=== PATIENT | female | born 1945 | race Caucasian/White ===

== ENCOUNTER 2023-06-21 14:29 | Emergency (ER) | payer MEDICARE, OTHER, SELFPAY ==
[2023-06-21 14:30] VITALS: BMI 22.9
[2023-06-21 14:43] VITALS: BP 163/84
[2023-06-21 15:15] LABS: % Basophils 0.3 % (0-2); % Eosinophils 0.6 % (0-6); % Immature Granulocytes 0.5 % (0-0.5); % Lymphocytes 12.2 % (20.5-51.1); % Monocytes 15.2 % (1.7-9.3); % Neutrophils 71.2 % (42.2-75.2); Absolute Eosinophils 0.1 10^3/uL (0-0.7); Absolute Lymphocytes 1.1 10^3/uL (1.2-3.4); Absolute Monocytes 1.3 10^3/uL (0.1-0.6); Absolute Neutrophils 6.2 10^3/uL (1.4-6.5); Hematocrit 41.7 % (37.0-47.0); Hemoglobin 14.4 g/dL (12.0-16.0); Mean Corp Hgb Conc. 34.5 g/dL (33.0-37.0); Mean Corpuscular Hgb 31.3 pg (27.0-31.0); Mean Corpuscular Volume 90.7 fL (81.0-99.0); Mean Platelet Volume 10.6 fL (7.4-10.4); Nucleated Red Blood Cells % 0 %; Platelet Count 245 10^3/uL (130-400); Red Cell Dist. Width 13.6 % (11.5-14.5); White Blood Cell Count 8.7 10^3/uL (4.8-10.8)
[2023-06-21 15:33] LABS: ALT (SGPT) 20 U/L (0-35); AST (SGOT) 29 U/L (14-36); Albumin 3.8 g/dl (3.5-5.0); Alkaline Phosphatase 99 U/L (38-126); Blood Urea Nitrogen 28 mg/dl (7-17); Calcium 9.8 mg/dl (8.4-10.2); Carbon Dioxide 24 mmol/L (22-30); Chloride 104 mmol/L (98-107); Estimated Creatinine Clearance 40 ml/min; Glucose 112 mg/dl (70-99); Potassium 4.2 mmol/L (3.5-5.1); Sodium 136 mmol/L (135-145); Total Bilirubin 0.6 mg/dl (0.2-1.3); Total Protein 6.9 g/dl (6.3-8.2); eGFR > 60.00
[2023-06-21 15:34] LABS: Lipase 119 U/L (23-300)
[2023-06-21 16:00] VITALS: BP 155/80
--- NOTE | 2023-06-21 16:21 | ED.GENMED ---
History of Present Illness
General
Chief Complaint: Abdominal Pain
Time Seen by Provider: 06/21/23 14:56
Travel History
Have you had any contact with someone who has COVID-19?: Yes
Comment: see above
Do you have any symptoms of coronavirus? Fever > 100 degrees, chills, cough, shortness of breath, sore throat, loss of taste or smell, muscle aches, or headache?: Yes
Symptoms:: see above.
History of Present Illness
History of Present Illness:
77-year-old female with history of hypertension presents to the emergency department for evaluation of bilateral lower abdominal pain developing earlier today. States it began approximately 2 hours after taking Paxlovid, was diagnosed with COVID
after developing URI symptoms over the weekend. She had a bowel movement after the onset of pain and symptoms have resolved. At the current time she has no complaints other than that was attributed to her COVID including nasal congestion, malaise,
and dry cough. Denies any chest pain or trouble breathing.
Past History
Past History
ED Past Medical History: GERD, HTN and Hypercholesterolemia
ED Past Surgical History: Gynecological (hysterectomy)
Patient has exhibited threatening behavior?: No
Social History
Tobacco: Non-smoker
Alcohol: Occasional
Drug: None
Personal:
Living: with family
Employment: Not employed
Family History
Family History: CAD, Cancer and Other (hepatitis B)
Review of Systems
Review of Systems
Allergies reviewed?: Yes
All Other Systems: ROS reviewed and negative except as documented in HPI and ROS
Phy Exam
Physical Exam
Physical Exam:
GEN: Well appearing, NAD, WDWN
HEENT: Oral mucosa moist, no scleral icterus
Cardiac: Regular rate
Lung: No respiratory distress, no tachypnea
Abdomen: Soft, nontender, no rigidity
MSK: No gross deformity or injuries
Skin: Good color, no pallor or jaundice, no rashes
Neuro: AO x3, moves all extremities freely
Psych: Calm, cooperative
Course
Orders/Labs/Results
Orders:
Orders
06/21/23 14:45
Complete Blood Count/With Diff Urgent
Comprehensive Metabolic Panel Urgent
Lipase Urgent
Abnormal Lab Results
06/21/23
14:45
MCH 31.3 H pg
(27.0-31.0)
MPV 10.6 H fL
(7.4-10.4)
Absolute Lymphs (auto) 1.1 L 10^3/uL
(1.2-3.4)
Absolute Monos (auto) 1.3 H 10^3/uL
(0.1-0.6)
Lymphocytes % 12.2 L %
(20.5-51.1)
Monocytes % 15.2 H %
(1.7-9.3)
BUN 28 H mg/dl
(7-17)
Glucose 112 H mg/dl
(70-99)
06/21/23 14:45
06/21/23 14:45
Vital Signs
Initial and Last Documented VS:
Initial Vital Signs
Pulse Ox
99
06/21/23 14:30
Last Documented Vital Signs
Temp Pulse Resp BP Pulse Ox
98.6 F 84 18 155/80 99
06/21/23 14:43 06/21/23 16:00 06/21/23 16:00 06/21/23 16:00 06/21/23 16:00
MDM/Problems Addressed
MDM/Problems Addressed:
Patient's abdominal exam is benign currently. Her labs are reassuring. No indication for imaging in regards to COVID given that she is not hypoxic and has no shortness of breath complaints. Hard to truly attribute this to Paxlovid given that the
symptoms are now resolved, would encourage her to continue this however with any recurrent pain may need to discontinue Paxlovid particular given that she has not excessively high risk for worsening disease
*Critical Care Note
Total Time (30-74mins, 75-104mins- exclusive of procedures): Not Applicable
ED Attending Note
-
Portions of this chart may have been created with voice recognition software.� Occasional wrong word or��sound alike� substitutions may have occurred due to the inherent limitations of voice recognition software.
Discharge Plan
Departure
Patient Disposition: Home (Routine Discharge)
Date of Disposition: 06/21/23
Time of Disposition: 16:21
Patient with high blood pressure during this ER visit?: No
Discharge Problem:
Abdominal pain, lower, COVID-19
Instructions: COVID-19 (DC)
Interventions
Interventions:
*Risk Screen - Suicide Last Done: 06/21/23 14:30
*General Assessment Last Done: 06/21/23 14:30
*Neglect/Abuse Screening Last Done: 06/21/23 14:30
ED- Fall Risk Assessment Last Done: 06/21/23 14:30
*ED COVID-19 Vaccine History Last Done: 06/21/23 14:30
*Nursing Disposition Last Done: 06/21/23 17:16
FE-Aimqey-Acuuwobpmx Assessment Last Done: 06/21/23 14:30
Discharge Date and Time
Discharge Date/Time: 06/21/23 17:17
== END 2023-06-21 17:17 | disposition home or self-care (01) ==
LOC: EMR 14:29
PROVIDERS: EMERGENCY PHYSICIAN Emergency Medicine; FAMILY PHYSICIAN Family Medicine
DX: U07.1 COVID-19 (principal); R10.30 Lower abdominal pain, unspecified
CPT/HCPCS: 99283; 80053; 83690; 85025

== ENCOUNTER → 2023-07-03 08:24 | Outpatient (REF) | payer MEDICARE, OTHER, SELFPAY | LOC: RCS 08:24 | PROVIDERS: ATTENDING PHYSICIAN Internal Medicine Cardiovascular Disease; FAMILY PHYSICIAN Family Medicine | DX: I11.9 Hypertensive heart disease without heart failure (principal) | CPT/HCPCS: 93306 ==

== ENCOUNTER → 2023-07-16 10:46 | Outpatient (REF) | payer MEDICARE, OTHER, SELFPAY | LOC: WDC 10:46 | PROVIDERS: ATTENDING PHYSICIAN Family Medicine | DX: Z12.31 Encounter for screening mammogram for malignant neoplasm of breast (principal) | CPT/HCPCS: 77063; 77067 ==

== ENCOUNTER → 2023-09-08 10:03 | Outpatient (REF) | payer MEDICARE, OTHER, SELFPAY ==
[2023-09-08 11:21] LABS: Urine Albumin Negative (Neg - Trace); Urine Bilirubin Negative (Negative); Urine Character Clear (Clear); Urine Color Yellow; Urine Glucose Negative (Negative); Urine Ketone Negative (Negative); Urine Leukocyte 2+ (Negative); Urine Nitrite Negative (Negative); Urine Occult Blood Negative (Negative); Urine Urobilinogen Negative (Neg - 1+)
[2023-09-08 11:28] LABS: % Basophils 0.5 % (0-2); % Eosinophils 2.2 % (0-6); % Immature Granulocytes 0.4 % (0-0.5); % Lymphocytes 28.1 % (20.5-51.1); % Monocytes 7.9 % (1.7-9.3); % Neutrophils 60.9 % (42.2-75.2); Absolute Eosinophils 0.2 10^3/uL (0-0.7); Absolute Lymphocytes 2.3 10^3/uL (1.2-3.4); Absolute Monocytes 0.7 10^3/uL (0.1-0.6); Absolute Neutrophils 5.1 10^3/uL (1.4-6.5); Hematocrit 41.2 % (37.0-47.0); Mean Corpuscular Hgb 31.8 pg (27.0-31.0); Mean Corpuscular Volume 93.6 fL (81.0-99.0); Mean Platelet Volume 11.2 fL (7.4-10.4); Nucleated Red Blood Cells % 0 %; Platelet Count 185 10^3/uL (130-400); Red Cell Dist. Width 13.8 % (11.5-14.5); White Blood Cell Count 8.3 10^3/uL (4.8-10.8)
[2023-09-08 11:34] LABS: Urine Bacteria Few (Negative); Urine Red Blood Cell 0-2 /HPF (0-2)
[2023-09-08 11:52] LABS: ALT (SGPT) 17 U/L (0-35); AST (SGOT) 23 U/L (14-36); Albumin 3.9 g/dl (3.5-5.0); Alkaline Phosphatase 88 U/L (38-126); Blood Urea Nitrogen 22 mg/dl (7-17); Calcium 9.3 mg/dl (8.4-10.2); Carbon Dioxide 28 mmol/L (22-30); Chloride 105 mmol/L (98-107); Glucose 87 mg/dl (70-99); HDL Cholesterol 105 mg/dl; LDL Cholesterol, Calculated 103 mg/dl; Potassium 4.5 mmol/L (3.5-5.1); Sodium 139 mmol/L (135-145); Total Bilirubin 0.7 mg/dl (0.2-1.3); Total Cholesterol 227 mg/dl (50-199); Total Protein 6.7 g/dl (6.3-8.2); Triglyceride 99 mg/dl (10-149); Very Low Density Lipoprotein 19 mg/dl (0-30); eGFR > 60.00
[2023-09-08 12:05] LABS: Total Thyroxine 6.74 ug/dl (5.5-11.0)
[2023-09-08 12:25] LABS: TSH 3.46 uIU/ml (0.47-4.68)
== END ==
LOC: REG 10:03
PROVIDERS: ATTENDING PHYSICIAN Family Medicine
DX: I25.9 Chronic ischemic heart disease, unspecified (principal); I10 Essential (primary) hypertension; E11.9 Type 2 diabetes mellitus without complications; E78.2 Mixed hyperlipidemia; E03.9 Hypothyroidism, unspecified; R39.15 Urgency of urination
CPT/HCPCS: 36415; 80053; 80061; 81003; 81015; 84436; 84443; 85025

== ENCOUNTER → 2023-11-15 10:32 | Outpatient (REF) | payer MEDICARE, OTHER, SELFPAY ==
[2023-11-15 12:10] LABS: ALT (SGPT) 16 U/L (0-35); AST (SGOT) 25 U/L (14-36); Albumin 4.3 g/dl (3.5-5.0); Alkaline Phosphatase 84 U/L (38-126); Blood Urea Nitrogen 25 mg/dl (7-17); Calcium 9.9 mg/dl (8.4-10.2); Carbon Dioxide 28 mmol/L (22-30); Chloride 107 mmol/L (98-107); Glucose 83 mg/dl (70-99); Magnesium 2.1 mg/dl (1.6-2.3); Phosphorus 3.6 mg/dl (2.5-4.5); Potassium 4.6 mmol/L (3.5-5.1); Sodium 141 mmol/L (135-145); Total Bilirubin 0.6 mg/dl (0.2-1.3); Total Protein 6.8 g/dl (6.3-8.2); eGFR 57.66
[2023-11-15 12:28] LABS: Vitamin D, 25-OH*** 46.4 ng/mL (30-80)
[2023-11-15 12:41] LABS: TSH 2.74 uIU/ml (0.47-4.68)
[2023-11-15 13:38] LABS: Folate > 20.0 ng/ml (2.76-20); Vitamin B12 588 pg/ml (239-931)
[2023-11-16 11:49] LABS: Syphilis/T. pallidum Ab Reflex Negative (Negative)
[2023-11-17 10:22] LABS: Intact PTH 45.8 pg/ml (13.6-85.8)
== END ==
LOC: REG 10:32
PROVIDERS: ATTENDING PHYSICIAN Internal Medicine Endocrinology, Diabetes & Metabolism; FAMILY PHYSICIAN Family Medicine; REFERRING PHYSICIAN Psychiatry & Neurology Neurology
DX: I10 Essential (primary) hypertension (principal); R42 Dizziness and giddiness; R41.3 Other amnesia; M81.0 Age-related osteoporosis without current pathological fracture; R41.9 Unspecified symptoms and signs involving cognitive functions and awareness
CPT/HCPCS: 36415; 80053; 82306; 82330; 82607; 82746; 83735; 83970; 84100; 84443; 86618; 86780

== ENCOUNTER → 2023-11-17 09:10 | Outpatient (REF) | payer MEDICARE, OTHER, SELFPAY ==
[2023-11-17 10:40] LABS: 24 Hour Urine Total Volume 1100 ml
[2023-11-17 12:31] LABS: Urine Calcium 20.4 mg/dl
[2023-11-17 12:45] LABS: 24 Hour Urine Calcium 224.4 mg/day; 24 Hour Urine Total Volume 1100 ml
[2023-11-17 12:58] LABS: 24 Hour Urine Creatinine 0.772 gm/day (0.8-1.8); Urine Sodium 133 mmol/L (30-90)
== END ==
LOC: REG 09:10
PROVIDERS: ATTENDING PHYSICIAN Internal Medicine Endocrinology, Diabetes & Metabolism; FAMILY PHYSICIAN Family Medicine
DX: M81.0 Age-related osteoporosis without current pathological fracture (principal)
CPT/HCPCS: 81050; 82340; 82570; 84300

== ENCOUNTER → 2023-12-23 10:00 | Outpatient (REF) | payer MEDICARE, OTHER, SELFPAY ==
[2023-12-23 10:34] LABS: % Eosinophils 3.2 % (0-6); % Immature Granulocytes 0.1 % (0-0.5); % Lymphocytes 30.8 % (20.5-51.1); % Monocytes 9.1 % (1.7-9.3); % Neutrophils 55.8 % (42.2-75.2); Absolute Basophils 0.1 10^3/uL (0-0.2); Absolute Eosinophils 0.2 10^3/uL (0-0.7); Absolute Lymphocytes 2.2 10^3/uL (1.2-3.4); Absolute Monocytes 0.7 10^3/uL (0.1-0.6); Hematocrit 40.7 % (37.0-47.0); Hemoglobin 14.3 g/dL (12.0-16.0); Mean Corp Hgb Conc. 35.1 g/dL (33.0-37.0); Mean Corpuscular Volume 91.1 fL (81.0-99.0); Mean Platelet Volume 10.5 fL (7.4-10.4); Nucleated Red Blood Cells % 0 %; Platelet Count 259 10^3/uL (130-400); Red Blood Cell Count 4.47 10^6/uL (4.20-5.40); Red Cell Dist. Width 12.9 % (11.5-14.5); White Blood Cell Count 7.2 10^3/uL (4.8-10.8)
[2023-12-23 11:08] LABS: ALT (SGPT) 14 U/L (0-35); AST (SGOT) 24 U/L (14-36); Albumin 4.2 g/dl (3.5-5.0); Alkaline Phosphatase 82 U/L (38-126); Blood Urea Nitrogen 21 mg/dl (7-17); Calcium 9.9 mg/dl (8.4-10.2); Carbon Dioxide 26 mmol/L (22-30); Chloride 109 mmol/L (98-107); Glucose 88 mg/dl (70-99); HDL Cholesterol 65 mg/dl; LDL Cholesterol, Calculated 126 mg/dl; Potassium 4.4 mmol/L (3.5-5.1); Sodium 145 mmol/L (135-145); Total Bilirubin 0.5 mg/dl (0.2-1.3); Total Cholesterol 230 mg/dl (50-199); Total Protein 6.7 g/dl (6.3-8.2); Triglyceride 199 mg/dl (10-149); Very Low Density Lipoprotein 39 mg/dl (0-30); eGFR > 60.00
== END ==
LOC: REG 10:00
PROVIDERS: ATTENDING PHYSICIAN Internal Medicine Cardiovascular Disease; FAMILY PHYSICIAN Family Medicine
DX: I10 Essential (primary) hypertension (principal); E78.00 Pure hypercholesterolemia, unspecified
CPT/HCPCS: 36415; 80053; 80061; 85025

== ENCOUNTER 2024-01-21 03:45 | Emergency (ER) | payer MEDICARE, OTHER, SELFPAY ==
[2024-01-21 03:58] VITALS: BP 139/68
[2024-01-21 04:00] VITALS: BMI 22.5
[2024-01-21 04:19] LABS: % Basophils 0.5 % (0-2); % Eosinophils 5.5 % (0-6); % Immature Granulocytes 0.5 % (0-0.5); % Lymphocytes 19.5 % (20.5-51.1); % Monocytes 8.8 % (1.7-9.3); % Neutrophils 65.2 % (42.2-75.2); Absolute Basophils 0.1 10^3/uL (0-0.2); Absolute Eosinophils 0.6 10^3/uL (0-0.7); Absolute Immature Granulocytes 0.1 10^3/uL (0-0.05); Absolute Lymphocytes 2.1 10^3/uL (1.2-3.4); Absolute Monocytes 0.9 10^3/uL (0.1-0.6); Absolute Neutrophils 6.9 10^3/uL (1.4-6.5); Hematocrit 38.2 % (37.0-47.0); Hemoglobin 13.4 g/dL (12.0-16.0); Mean Corp Hgb Conc. 35.1 g/dL (33.0-37.0); Mean Corpuscular Hgb 32.2 pg (27.0-31.0); Mean Corpuscular Volume 91.8 fL (81.0-99.0); Mean Platelet Volume 10.8 fL (7.4-10.4); Nucleated Red Blood Cells % 0 %; Platelet Count 242 10^3/uL (130-400); Red Blood Cell Count 4.16 10^6/uL (4.20-5.40); Red Cell Dist. Width 12.7 % (11.5-14.5); White Blood Cell Count 10.6 10^3/uL (4.8-10.8)
--- NOTE | 2024-01-21 04:26 | ED.GENMED ---
History of Present Illness
<MARY Hancock - Last Filed: 01/21/24 05:19>
General
Chief Complaint: Chest Pain
Source: patient
Time Seen by Provider: 01/21/24 04:24
Nursing documentation reviewed up to this point in time: agreed with
History of Present Illness
History of Present Illness:
Patient is a 78 year old female with a history of GERD presenting to the ED with complaints of chest pain x 3 hours. She states before she went to bed she had 8 peanut butter crackers, and woke up around 2am with chest pain. She described it as a
bad indigestion feeling and rated it as moderate pain. The pain is worse with laying down and movement. She tried Pepto Bismol which alleviated symptoms, but they came back in a short period of time. Patient claims on her ride to the ER she had a
short bout of jaw pain that went away spontaneously. She states she has had GERD exacerbations in the past and this just feels like a worse version of one. At the time of speaking to the she was completely asymptomatic. Patient denies any
palpitations sob light headedness headache fever numbness tingling.
Patient has a history of GERD which she takes Pepcid for. She denies using it tonight. Patient denies tobacco use but admits to occasional alcohol consumption.
Past History
<MARY Hancock - Last Filed: 01/21/24 05:19>
Past History
ED Past Medical History: GERD, HTN and Hypercholesterolemia
ED Past Surgical History: Gynecological (hysterectomy)
Patient has exhibited threatening behavior?: No
Social History
Tobacco: Non-smoker
Alcohol: Occasional
Drug: None
Personal:
Living: with family
Employment: Not employed
Family History
Family History: CAD, Cancer and Other (hepatitis B)
Review of Systems
<MARY Hancock - Last Filed: 01/21/24 05:19>
Review of Systems
Allergies reviewed?: Yes
Other source history: family ()
Constitutional: Reports no symptoms
Respiratory: Reports no symptoms
Cardiac: Reports chest pain
ABD/GI: Reports no symptoms
Neurological: Reports no symptoms
Phy Exam
<ST KarissaTX - Last Filed: 01/21/24 05:19>
General Physical Exam
General Presentation: well appearing
General age: appears stated age
General Habitus: elderly
General Mental: alert
Cardiovascular Exam
Cardiovascular Exam: regular rate/rhythm, no edema, no gallop, no JVD and no murmur
Pulmonary Exam
Pulmonary Exam: lungs clear, no respiratory distress, no rales, chest non tender, no crackles, no rhonchi, no stridor, no wheezing and no cough
Scores
<Tulio Persaud [facility] - Last Filed: 01/21/24 05:19>
Heart Score for Chest Pain Patients
STEMI patient?: No
History: Slightly or Non-Suspicious
ECG: Normal
Age: >/= 65 years
Risk Factors: 1 or 2 Risk Factors
Troponin: </= Normal Limit
Heart Score for Chest Pain Patients: 3
Heart Score Risk: 2.5% MACE over next 6 weeks
<Leandro Naylor DO - Last Filed: 01/21/24 05:49>
Heart Score for Chest Pain Patients
Heart Score for Chest Pain Patients: 3
Heart Score Risk: 2.5% MACE over next 6 weeks
Course
<ST KarissaTX - Last Filed: 01/21/24 05:19>
Orders/Labs/Results
Orders:
Orders
01/21/24 03:46
Electrocardiogram (*1) Urgent
Reason for Study: Chest Pain
EKG- Treatment ONCE
01/21/24 03:51
Cardiac Monitoring- Treatment ONCE
EKG- Treatment ONCE
IV Insert/Care/Rem.- Treatment PRN
CR Chest - 2 Views Urgent
Comment:
Reason For Exam: respiratory distress
O2 Therapy [RESP] Urgent
Titrate/Wean O2 to maintain O2 sat greater than (%): 93
Special Instructions: TO MAINTAIN CONTINUOUS O2 SATS >/= 93%
Pulse Ox/cont/shift [RESP] Urgent
Quantity: 1
Special Instructions: continuous pulse ox
01/21/24 04:07
Complete Blood Count/With Diff Urgent
Comprehensive Metabolic Panel Urgent
NT-proBNP Urgent
Troponin I Urgent
Abnormal Lab Results
01/21/24
04:07
RBC 4.16 L 10^6/uL
(4.20-5.40)
MCH 32.2 H pg
(27.0-31.0)
MPV 10.8 H fL
(7.4-10.4)
Abs Immat Gran (auto) 0.1 H 10^3/uL
(0-0.05)
Absolute Neuts (auto) 6.9 H 10^3/uL
(1.4-6.5)
Absolute Monos (auto) 0.9 H 10^3/uL
(0.1-0.6)
Lymphocytes % 19.5 L %
(20.5-51.1)
Chloride 109 H mmol/L
(98-107)
Carbon Dioxide 15 L mmol/L
(22-30)
BUN 22 H mg/dl
(7-17)
Glucose 104 H mg/dl
(70-99)
01/21/24 04:07
01/21/24 04:07
Vital Signs
Initial and Last Documented VS:
Initial Vital Signs
Temp Pulse Resp BP Pulse Ox
98.8 F 71 20 139/68 97
01/21/24 03:58 01/21/24 03:58 01/21/24 03:58 01/21/24 03:58 01/21/24 03:58
Last Documented Vital Signs
Temp Pulse Resp BP Pulse Ox
98.8 F 72 14 139/68 95
01/21/24 03:58 01/21/24 04:06 01/21/24 04:06 01/21/24 03:58 01/21/24 04:06
<Leandro Naylor, DO - Last Filed: 01/21/24 05:49>
Orders/Labs/Results
Orders:
Orders
01/21/24 03:46
Electrocardiogram (*1) Urgent
Reason for Study: Chest Pain
EKG- Treatment ONCE
01/21/24 03:51
Cardiac Monitoring- Treatment ONCE
EKG- Treatment ONCE
IV Insert/Care/Rem.- Treatment PRN
CR Chest - 2 Views Urgent
Comment:
Reason For Exam: respiratory distress
O2 Therapy [RESP] Urgent
Titrate/Wean O2 to maintain O2 sat greater than (%): 93
Special Instructions: TO MAINTAIN CONTINUOUS O2 SATS >/= 93%
Pulse Ox/cont/shift [RESP] Urgent
Quantity: 1
Special Instructions: continuous pulse ox
01/21/24 04:07
Complete Blood Count/With Diff Urgent
Comprehensive Metabolic Panel Urgent
NT-proBNP Urgent
Troponin I Urgent
Abnormal Lab Results
01/21/24
04:07
RBC 4.16 L 10^6/uL
(4.20-5.40)
MCH 32.2 H pg
(27.0-31.0)
MPV 10.8 H fL
(7.4-10.4)
Abs Immat Gran (auto) 0.1 H 10^3/uL
(0-0.05)
Absolute Neuts (auto) 6.9 H 10^3/uL
(1.4-6.5)
Absolute Monos (auto) 0.9 H 10^3/uL
(0.1-0.6)
Lymphocytes % 19.5 L %
(20.5-51.1)
Chloride 109 H mmol/L
(98-107)
Carbon Dioxide 15 L mmol/L
(22-30)
BUN 22 H mg/dl
(7-17)
Glucose 104 H mg/dl
(70-99)
01/21/24 04:07
01/21/24 04:07
Vital Signs
Initial and Last Documented VS:
Initial Vital Signs
Temp Pulse Resp BP Pulse Ox
98.8 F 71 20 139/68 97
01/21/24 03:58 01/21/24 03:58 01/21/24 03:58 01/21/24 03:58 01/21/24 03:58
Last Documented Vital Signs
Temp Pulse Resp BP Pulse Ox
98.8 F 72 14 139/68 95
01/21/24 03:58 01/21/24 04:06 01/21/24 04:06 01/21/24 03:58 01/21/24 04:06
<MARY Hancock - Last Filed: 01/21/24 05:19>
MDM/Problems Addressed
Differential Diagnosis Includes:
GERD, stable angina, unstable angina
MDM/Problems Addressed:
get labs and ekg, patient is currently asymptomatic
<MARY Hancock - Last Filed: 01/21/24 05:19>
*Critical Care Note
Total Time (30-74mins, 75-104mins- exclusive of procedures): Not Applicable
ED Attending Note
<MARY Hancock - Last Filed: 01/21/24 05:19>
-
Portions of this chart may have been created with voice recognition software.� Occasional wrong word or��sound alike� substitutions may have occurred due to the inherent limitations of voice recognition software.
<Leandro Naylor DO - Last Filed: 01/21/24 05:49>
ED Attending Note
Patient seen and examined by attending physician: Yes
I performed the substantive portion of visit, reviewed & personally made and approve the management plan that is documented in note by myself or PATRICIA.: Yes
ED Attending Note:
This a pleasant 78-year-old female who presents to the emergency department with chest pain that began around 2 AM and awaken her from sleep. Before going to bed last evening she had a snack of peanut butter crackers. She states that she awakened
at 2 AM with this chest pain. She states that the pain lasted for about an hour and a half. She did likened it to 'reflux and indigestion 'patient also reports jaw pain that spontaneously resolved. Patient has had GERD exacerbations in the past
but states that this though feels similar, it is worse in intensity. Upon arrival to the emergency department, patient states that her symptoms have completely resolved. She was asymptomatic. Patient does see a time clerk at [facility]. Patient
was seen in conjunction with the PA student. I have reviewed and agree with the history and treatment plan presented. On my independent physical exam, patient is awake, alert, and oriented x3, no acute distress. Heart is regular rate rhythm.
Lungs with auscultation bilaterally no wheezes rales or rhonchi present. Abdomen soft and nontender. Moves all 4 extremities. Skin is warm and dry. No acute distress.
Vital signs are stable. Patient not hypoxic
Nursing note reviewed. I agree with nursing documentation up to this point in time.
Home Meds and allergies reviewed.
NUMBER AND COMPLEXITY OF PROBLEMS ADDRESSED AT THE ENCOUNTER
� Chronic conditions affecting care: Hypertension, hyperlipidemia, GERD
� Acute Exacerbation and/or Progression of Chronic Illness:
� Differential Diagnosis includes:
AMOUNT AND/OR COMPLEXITY OF DATA TO BE REVIEWED AND ANALYZED
I performed an independent evaluation of the following and my interpretation is:
EKG: EKG shows normal sinus rhythm rate of 71 with normal intervals, normal axis. No evidence of acute ischemia present. When compared with previous EKG dated June 04, 2022, no obvious change was noted.
CT:
X-rays: Chest x-ray was negative
Ultrasound:
Laboratory Studies: Initial troponin negative.
Other:
Review of other/old records:
Clinical information was obtained by an independent historian: None
Prescriptions/Medications Considered but not given: None
Further testing considered but not performed: None
RISK OF COMPLICATIONS AND/OR MORBIDITY OR MORTALITY OF PATIENT MANAGEMENT
Social determinants of health affecting care: Good Social Support
Discussion with other providers:
Escalation of care including admission/observation vs risk of discharge considered:
CRITICAL CARE NOTE: Not applicable
Total Time (exclusive of procedures):
Update:
Discharge Plan
Departure
Patient with high blood pressure during this ER visit?: Yes
Condition: Good
Discharge Problem:
Chest pain
Instructions: Chest Pain NON-[facility] National Secretary Follow Up, BLOOD PRESSURE, Acid Reflux and GERD in Adults (DC)
Referrals:
Marvel Herrera MD [Family Provider] -
Saide Dawkins MD [Non-Admitting Privileges] - Next open appointment
Activity Restrictions/Additional Instructions:
It was a pleasure meeting you and taking part in your care. We hope for your continued healing and wellness.
Please read discharge instructions in their entirety. However, they are for general education and may not describe your exact diagnosis at discharge. Information on your ER visit and medical conditions were discussed with you along with appropriate
follow up information...
If indicated, please take your medications as instructed and indicated on discharge paperwork.
Please schedule a follow up appointment as directed. Call to schedule an appointment
Please return to the emergency department with ANY change in, persisting, or worsening of symptoms. If any of your symptoms do not improve, or persist, or become more severe within 6-12 hours, please return to the emergency department for further
care.
Please return to the emergency department if you develop a headache, neck pain/stiffness, fever greater than 100.4F, chest pain, shortness of breath, persistent nausea, vomiting, slurred speech, difficulty walking, numbness/tingling, weakness, signs
of infection or any other symptoms that are worrisome to you.
If you have any questions or concerns please do not hesitate to call the Hospital at or E-mail me directly at [email or web address]
Interventions
Interventions:
*Risk Screen - Suicide Last Done: 01/21/24 03:46
*General Assessment Last Done: 01/21/24 03:52
*Neglect/Abuse Screening Last Done: 01/21/24 03:52
ED- Fall Risk Assessment Last Done: 01/21/24 04:05
*ED COVID-19 Vaccine History Last Done: 01/21/24 04:02
ED- Cardiac Assessment Last Done: 01/21/24 04:05
Discharge Date and Time
Print Language: GEORGIAN
[2024-01-21 04:28] LABS: ALT (SGPT) 16 U/L (0-35); AST (SGOT) 24 U/L (14-36); Alkaline Phosphatase 97 U/L (38-126); Blood Urea Nitrogen 22 mg/dl (7-17); Calcium 9.3 mg/dl (8.4-10.2); Carbon Dioxide 15 mmol/L (22-30); Chloride 109 mmol/L (98-107); Estimated Creatinine Clearance 44 ml/min; Glucose 104 mg/dl (70-99); Sodium 140 mmol/L (135-145); Total Bilirubin 0.4 mg/dl (0.2-1.3); Total Protein 6.5 g/dl (6.3-8.2); eGFR > 60.00
[2024-01-21 04:39] LABS: NT-proBNP 120 pg/ml; Troponin I < 0.012 ng/ml
[2024-01-21 05:00] VITALS: BP 114/69
[2024-01-21 05:45] VITALS: BP 105/85
[2024-01-21 06:00] VITALS: BP 103/84
[2024-01-21 07:00] VITALS: BP 104/48
[2024-01-21 08:00] VITALS: BP 116/57
[2024-01-21 08:33] LABS: Troponin I < 0.012 ng/ml
== END 2024-01-21 08:53 | disposition home or self-care (01) ==
LOC: EMR 03:45
PROVIDERS: EMERGENCY PHYSICIAN Student in an Organized Health Care Education/Training Program; FAMILY PHYSICIAN Family Medicine
DX: R07.89 Other chest pain (principal); K21.9 Gastro-esophageal reflux disease without esophagitis; I10 Essential (primary) hypertension; E78.00 Pure hypercholesterolemia, unspecified; Z82.49 Family history of ischemic heart disease and other diseases of the circulatory system; Z90.710 Acquired absence of both cervix and uterus
CPT/HCPCS: 99283; 71046; 80053; 83880; 84484; 85025; 93005

== ENCOUNTER → 2024-02-11 06:24 | Day surgery (SDC) | payer MEDICARE, OTHER, SELFPAY | LOC: GI 06:24 | PROVIDERS: ATTENDING PHYSICIAN Internal Medicine Gastroenterology; FAMILY PHYSICIAN Family Medicine | DX: R12 Heartburn (principal); R11.0 Nausea; K21.00 Gastro-esophageal reflux disease with esophagitis, without bleeding; K31.89 Other diseases of stomach and duodenum; K44.9 Diaphragmatic hernia without obstruction or gangrene; K26.9 Duodenal ulcer, unspecified as acute or chronic, without hemorrhage or perforation; K29.50 Unspecified chronic gastritis without bleeding | CPT/HCPCS: 43239; 88305; 88312; 88342 ==

== ENCOUNTER 2024-05-02 06:31 | Day surgery (SDC) | payer MEDICARE, SELFPAY ==
[2024-05-02 07:15] VITALS: BP 164/79; BMI 20.8
[2024-05-02 07:26] VITALS: BMI 20.8
[2024-05-02 09:05] VITALS: BP 126/64
[2024-05-02 09:15] VITALS: BP 142/65
[2024-05-02 09:30] VITALS: BP 138/67
== END 2024-05-02 09:50 | disposition home or self-care (01) ==
LOC: SDS 06:31
PROVIDERS: ATTENDING PHYSICIAN Internal Medicine Gastroenterology
DX: K20.90 Esophagitis, unspecified without bleeding (principal); K44.9 Diaphragmatic hernia without obstruction or gangrene; K31.89 Other diseases of stomach and duodenum; R93.3 Abnormal findings on diagnostic imaging of other parts of digestive tract
CPT/HCPCS: 43259

== ENCOUNTER → 2024-06-09 11:02 | Outpatient (REF) | payer MEDICARE, SELFPAY ==
[2024-06-09 12:16] LABS: % Basophils 0.6 % (0-2); % Eosinophils 3.3 % (0-6); % Immature Granulocytes 0.3 % (0-0.5); % Lymphocytes 26.8 % (20.5-51.1); % Monocytes 8.9 % (1.7-9.3); % Neutrophils 60.1 % (42.2-75.2); Absolute Eosinophils 0.2 10^3/uL (0-0.7); Absolute Lymphocytes 1.9 10^3/uL (1.2-3.4); Absolute Monocytes 0.6 10^3/uL (0.1-0.6); Absolute Neutrophils 4.2 10^3/uL (1.4-6.5); Hematocrit 41.8 % (37.0-47.0); Hemoglobin 14.1 g/dL (12.0-16.0); Mean Corp Hgb Conc. 33.7 g/dL (33.0-37.0); Mean Corpuscular Volume 91.9 fL (81.0-99.0); Mean Platelet Volume 10.7 fL (7.4-10.4); Nucleated Red Blood Cells % 0 %; Platelet Count 263 10^3/uL (130-400); Red Blood Cell Count 4.55 10^6/uL (4.20-5.40); Red Cell Dist. Width 13.3 % (11.5-14.5)
[2024-06-09 12:21] LABS: Urine Bilirubin Negative (Negative); Urine Character Clear (Clear); Urine Color Yellow; Urine Glucose Negative (Negative); Urine Ketone Negative (Negative)
[2024-06-09 12:36] LABS: Urine Leukocyte 1+ (Negative); Urine Nitrite Negative (Negative); Urine pH 6.5 (5.0-9.0)
[2024-06-09 12:37] LABS: Urine Albumin 1+ (Neg - Trace); Urine Occult Blood Negative (Negative); Urine Urobilinogen Negative (Neg - 1+)
[2024-06-09 12:39] LABS: Urine Specific Gravity 1.015 (<1.030)
[2024-06-09 12:55] LABS: ALT (SGPT) 16 U/L (0-35); AST (SGOT) 28 U/L (14-36); Albumin 4.3 g/dl (3.5-5.0); Alkaline Phosphatase 108 U/L (38-126); Blood Urea Nitrogen 22 mg/dl (7-17); Calcium 9.7 mg/dl (8.4-10.2); Carbon Dioxide 28 mmol/L (22-30); Chloride 104 mmol/L (98-107); Glucose 89 mg/dl (70-99); HDL Cholesterol 74 mg/dl; LDL Cholesterol, Calculated 117 mg/dl; Potassium 4.8 mmol/L (3.5-5.1); Sodium 140 mmol/L (135-145); Total Bilirubin 0.8 mg/dl (0.2-1.3); Total Cholesterol 213 mg/dl (50-199); Triglyceride 113 mg/dl (10-149); Very Low Density Lipoprotein 22 mg/dl (0-30); eGFR > 60.00
[2024-06-09 12:59] LABS: Urine Red Blood Cell 0-2 /HPF (0-2)
[2024-06-09 13:12] LABS: Free T4 1.03 ng/dl (0.78-2.19)
[2024-06-09 13:26] LABS: TSH 3.13 uIU/ml (0.47-4.68)
[2024-06-09 13:49] LABS: Erythrocyte Sed Rate 25 mm/hour (0-20)
== END ==
LOC: REG 11:02
PROVIDERS: ATTENDING PHYSICIAN Family Medicine
DX: I10 Essential (primary) hypertension (principal); E78.2 Mixed hyperlipidemia; M25.50 Pain in unspecified joint; R39.15 Urgency of urination
CPT/HCPCS: 36415; 80053; 80061; 81003; 81015; 84439; 84443; 85025; 85652

== ENCOUNTER → 2024-08-10 14:09 | Outpatient (REF) | payer MEDICARE, SELFPAY ==
[2024-08-10 14:41] LABS: % Basophils 0.5 % (0-2); % Eosinophils 1.5 % (0-6); % Immature Granulocytes 0.3 % (0-0.5); % Lymphocytes 25.4 % (20.5-51.1); % Neutrophils 62.3 % (42.2-75.2); Absolute Basophils 0.1 10^3/uL (0-0.2); Absolute Eosinophils 0.2 10^3/uL (0-0.7); Absolute Lymphocytes 2.6 10^3/uL (1.2-3.4); Absolute Neutrophils 6.3 10^3/uL (1.4-6.5); Hematocrit 38.6 % (37.0-47.0); Hemoglobin 13.4 g/dL (12.0-16.0); Mean Corp Hgb Conc. 34.7 g/dL (33.0-37.0); Mean Corpuscular Hgb 31.7 pg (27.0-31.0); Mean Corpuscular Volume 91.3 fL (81.0-99.0); Nucleated Red Blood Cells % 0 %; Platelet Count 321 10^3/uL (130-400); Red Blood Cell Count 4.23 10^6/uL (4.20-5.40); Red Cell Dist. Width 13.6 % (11.5-14.5); White Blood Cell Count 10.1 10^3/uL (4.8-10.8)
[2024-08-10 15:14] LABS: ALT (SGPT) 15 U/L (0-35); AST (SGOT) 21 U/L (14-36); Albumin 4.2 g/dl (3.5-5.0); Alkaline Phosphatase 100 U/L (38-126); Blood Urea Nitrogen 21 mg/dl (7-17); Calcium 9.9 mg/dl (8.4-10.2); Carbon Dioxide 25 mmol/L (22-30); Chloride 108 mmol/L (98-107); Glucose 90 mg/dl (70-99); Potassium 4.2 mmol/L (3.5-5.1); Sodium 142 mmol/L (135-145); Total Bilirubin 0.5 mg/dl (0.2-1.3); Total Protein 6.8 g/dl (6.3-8.2); eGFR > 60.00
== END ==
LOC: REG 14:09
PROVIDERS: ATTENDING PHYSICIAN Family Medicine
DX: R68.83 Chills (without fever) (principal); E07.9 Disorder of thyroid, unspecified
CPT/HCPCS: 36415; 80053; 85025

== ENCOUNTER → 2024-08-14 08:14 | Outpatient (REF) | payer MEDICARE, SELFPAY ==
[2024-08-14 12:36] LABS: ALT (SGPT) 14 U/L (0-35); AST (SGOT) 20 U/L (14-36); Albumin 4.3 g/dl (3.5-5.0); Alkaline Phosphatase 104 U/L (38-126); Blood Urea Nitrogen 18 mg/dl (7-17); Carbon Dioxide 22 mmol/L (22-30); Chloride 110 mmol/L (98-107); Glucose 107 mg/dl (70-99); Potassium 4.4 mmol/L (3.5-5.1); Sodium 144 mmol/L (135-145); Total Bilirubin 0.6 mg/dl (0.2-1.3); Total Protein 6.9 g/dl (6.3-8.2); eGFR > 60.00
[2024-08-14 12:49] LABS: Vitamin D, 25-OH*** 39.3 ng/mL (30-80)
== END ==
LOC: WDC 08:14
PROVIDERS: ATTENDING PHYSICIAN Family Medicine; REFERRING PHYSICIAN Internal Medicine Endocrinology, Diabetes & Metabolism
DX: M81.0 Age-related osteoporosis without current pathological fracture (principal); Z12.31 Encounter for screening mammogram for malignant neoplasm of breast
CPT/HCPCS: 36415; 77063; 77067; 77080; 80053; 82306

== ENCOUNTER → 2024-09-07 13:09 | Outpatient (REF) | payer MEDICARE, OTHER, SELFPAY | LOC: REG 13:09 | PROVIDERS: ATTENDING PHYSICIAN Internal Medicine Gastroenterology; FAMILY PHYSICIAN Family Medicine | DX: R19.7 Diarrhea, unspecified (principal) | CPT/HCPCS: 83993; 87045; 87046; 87324; 87328; 87329; 87427; 87449 ==

== ENCOUNTER → 2025-02-28 11:54 | Outpatient (REF) | payer MEDICARE, OTHER, SELFPAY ==
[2025-02-28 13:04] LABS: Hematocrit 40.2 % (37.0-47.0); Hemoglobin 13.1 g/dL (12.0-16.0); Mean Corp Hgb Conc. 32.6 g/dL (33.0-37.0); Mean Corpuscular Volume 94.4 fL (81.0-99.0); Platelet Count 246 10^3/uL (130-400); Red Cell Dist. Width 13.3 % (11.5-14.5)
[2025-02-28 14:09] LABS: Albumin 4.1 g/dl (3.5-5.0); Blood Urea Nitrogen 28 mg/dl (7-17); Calcium 10.0 mg/dl (8.4-10.2); Carbon Dioxide 27 mmol/L (22-30); Chloride 104 mmol/L (98-107); Glucose 95 mg/dl (70-99); Potassium 4.4 mmol/L (3.5-5.1); Sodium 137 mmol/L (135-145); eGFR 57.31
[2025-02-28 14:46] LABS: Microalbumin, Random Urine 8.6 mg/dl (0.6-1.7)
== END ==
LOC: REG 11:54
PROVIDERS: ATTENDING PHYSICIAN Internal Medicine; FAMILY PHYSICIAN Family Medicine
DX: N05.1 Unspecified nephritic syndrome with focal and segmental glomerular lesions (principal)
CPT/HCPCS: 36415; 80069; 82043; 82570; 84156; 85027